=== PATIENT | male | born 1995 ===

== ENCOUNTER → 2017-10-25 | Outpatient (CLI) | payer OTHER ==
[~2017-10-25] MED LIST: IBUP-103 PO
--- NOTE | 2017-10-25 09:57 | DIAGNOSTIC IMAGING REPORT ---
LUMBAR SPINE 5 VIEWS CLINICAL HISTORY: Low back pain. FINDINGS: 5 views of the lumbar spine are obtained. No prior studies are available for comparison at the time of dictation. The skeletal structures are well mineralized. There is no radiographic evidence of fracture or malalignment. Vertebral body height and alignment are maintained. Mild apparent lumbar levocurvature may be positional. The transverse and spinous processes are intact. There is no evidence of spondylolysis. The intervertebral disc spaces are well-maintained. The visualized bony pelvis appears intact. There is a nonobstructed abdominal bowel gas pattern. IMPRESSION: 1. No acute bony abnormality is seen involving the lumbosacral spine. 2. Apparent mild levocurvature of the lumbar spine may be positional. Electronically signed by: Hosea Mistry M.D. 10/25/2017 9:56 AM Dictated Date/Time: 10/25/2017 9:55 AM
== END | disposition home or self-care (01) ==
LOC: C.RAD1850 08:41
PROVIDERS: ATTEND Physician Assistant
DX: M54.5 Low back pain (principal)